=== PATIENT | female | born 1955 ===

== ENCOUNTER → 2019-10-22 | Outpatient (CLI) | payer MEDICARE, OTHER | LOC: OLS 08:30 → LAB SHORT 08:30 | DX: A09 Infectious gastroenteritis and colitis, unspecified (principal) | CPT/HCPCS: 87493 ==

== ENCOUNTER 2024-03-01 06:10 | Day surgery (SDC) | payer MEDICARE, BC ==
[~2024-03-01] VITALS: Ht 160 cm; Wt 56.7 kg
[2024-03-01] MEDS ORDERED: CeFAZolin Sodium 2,000 MG VIAL ONE (06:26)
[2024-03-01] MEDS ORDERED: Lactated Ringer's 1,000 ML IV ONE ×3 (06:27→10:00)
[2024-03-01] MEDS ORDERED: NS 50 ML IV ONE (06:27)
[2024-03-01] MEDS ORDERED: Tranexamic Acid 100 ML IV ONE (06:31)
[2024-03-01] MEDS ORDERED: Lidocaine 1%-Epineph 1:100000 20 ML MDV ONE (06:55)
[2024-03-01] MEDS ORDERED: Bupivacaine 0.5% HCl 5 MG/ML 30MLVIAL ONE (07:06)
[2024-03-01] MEDS ORDERED: propofoL 20 ML IV ONE (07:06)
[2024-03-01] MEDS ORDERED: EPINEPhrine HCl 1 MG/ML 1ML Amp ONE (07:06)
[2024-03-01] MEDS ORDERED: Midazolam HCl 1MG / ML 2ML Vial ONE (07:06)
[2024-03-01] MEDS ORDERED: Dexamethasone Sod Phos 10 MG/ML 1ML VIAL ONE (07:06)
--- NOTE | 2024-03-01 09:00 | NUR ---
03/01/24 0900 Sandy Brown INTERSCALENE BLOCK TIME OUT @ 0790
[2024-03-01] MEDS ORDERED: Rocuronium Bromide 10 MG/ML 5ML Injection IV ONE (09:19)
[2024-03-01] MEDS ORDERED: FentaNYL Citrate 50 MCG/ML 2 ML Injection ONE (09:20)
[2024-03-01] MEDS ORDERED: EPINEPhrine HCl 1 MG/ML 1ML Amp XX ONE (09:45)
[2024-03-01] MEDS ORDERED: ePHEDrine Sulfate 50 MG/ML 1ML Injection ONE (09:47)
[2024-03-01] MEDS ORDERED: Phenylephrine HCl 100 MCG/ML-NS 10MLSYR (1MG/10ML) ONE ×2 (10:07→10:44)
[2024-03-01] MEDS ORDERED: Glycopyrrolate 0.2 MG/ML 5ML VIAL ONE (10:07)
[2024-03-01] MEDS ORDERED: Sugammadex Sodium 200 MG/2ML SDV (100 MG/ML) ONE (10:57)
--- NOTE | 2024-03-01 13:21 | NUR ---
03/01/24 1321 Temitope Davila PT DENIED ANY PAIN, NO NAUSEA. PT ABLE TO TOLERATE CRACKERS AND FLUIDS. PT EDUCATION PROVIDED TO PT AND HER FAMILY. INSENTIVE SPIROMETER GIVEN AND PT WAS ABLE TO DEMONSTRATE HOW TO USE IT. ALL QUESTIONS WERE ANSWERED, CONCERNS ADDRESSED. EDUCATION ON HOW TO USE THE POLAR PACK WAS GIVEN. PRESCRIPTION FOR OXY 5MG GIVEN TO PT...PAPERCLIPPED TO THE INSIDE OF HER FOLDER WITH HER DISCHARGE PAPERWORK INCLUDED TOO. PT COLLECTED ALL PERSONAL BELONGINGS. PT ASSISTED TO A W/C TO HER PRIVATE VEHICLE.
[2024-03-01 13:22] VITALS: BP 98/73
== END 2024-03-01 13:10 | disposition home or self-care (01) ==
LOC: ORSCSDS 06:10
PROVIDERS: Orthopaedic Surgery Sports Medicine
PROC: 0LN24ZZ Release Left Shoulder Tendon, Percutaneous Endoscopic Approach (ICD-10-PCS; principal; 2024-03-01 07:30)
PROC: 0RNK4ZZ Release Left Shoulder Joint, Percutaneous Endoscopic Approach (ICD-10-PCS; principal; 2024-03-01 07:30)
DX: M75.112 Incomplete rotator cuff tear or rupture of left shoulder, not specified as traumatic (principal); M25.512 Pain in left shoulder
CPT/HCPCS: 93005; 93010; C1713; J0171; J0690; J1100; J2250; J2371; J2704; J3010; J7120